=== PATIENT | male | born 1990 | race Caucasian/White ===

== ENCOUNTER 2016-11-16 18:31 | Emergency (ER) | payer BC ==
[2016-11-16 18:37] VITALS: BP 143/86; PULSE 101; RESP 16; TEMP 97.7; O2SAT 95
--- NOTE | 2016-11-16 18:50 | EDPHY ---
H & P Time Seen by Provider: 11/16/16 18:49 HPI/ROS: CHIEF COMPLAINT: Cough and fever HISTORY OF PRESENT ILLNESS: This 26-year-old man presents with nonproductive cough which is severe. 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 He started having symptoms approximately 48 hours ago with nonproductive cough, some wheezing, subjective fevers, myalgias. REVIEW OF SYSTEMS: Eye: no change in vision ENT: no sore throat Cardiac: no chest pain or syncope Pulmonary: No hemoptysis. Abdomen: no vomiting, diarrhea, abdominal pain Musculoskeletal: Myalgias but no specific neck or back pain. Skin: no rash Neuro: Mild headache Constitutional: Fevers and chills, no recent travel. : no urinary symptoms A comprehensive 10 point review of systems is otherwise negative aside from elements mentioned in the history of present illness. PAST MEDICAL HISTORY: Previous pneumonia Social history: Tobacco smoker, no IV drug abuse or foreign travel. General Appearance: Alert and conversant, cooperative. Eyes: No scleral icterus. ENT, Mouth: Normal mucous membranes. No facial swelling, normal tympanic membranes. Respiratory: Bilateral expiratory wheezing but speaks in full sentences, no focal lung sounds. Cardiovascular: Regular rate and rhythm. Gastrointestinal: Abdomen is soft and non tender. Neurological: Alert and oriented x3. Normally conversant. Face symmetric, normal movement and sensation in all extremities. Skin: Warm and dry, no rashes. Musculoskeletal: No peripheral edema and no joint swelling. No calf tenderness. Normal range of motion of the neck. Psychiatric: Not agitated. Emergency Department course/MDM: Patient presents with symptoms consistent with influenza. Temperature was a 100.8 degrees at home. Does not have presentation of meningitis or sepsis. He has bronchospasm here and empiric treatment with Tamiflu discussed and consented. Flu testing sent and resulted as negative, but we discussed false- positive and false negative possibilities, he would prefer empiric treatment. Albuterol MDI, Vicodin and Tessalon for cough, oral Tamiflu. No antibiotics. No focal lung sounds and normal oxygen saturation. Smoking Status: Current every day smoker Constitutional: Initial Vital Signs Temperature (C) 36.5 C 11/16/16 18:34 Heart Rate 101 H 11/16/16 18:34 Respiratory Rate 16 11/16/16 18:34 Blood Pressure 143/86 H 11/16/16 18:34 O2 Sat (%) 95 11/16/16 18:34 O2 Delivery Mode Room Air Allergies/Adverse Reactions: No Known Allergies Allergy (Unverified 11/16/16 18:33) Home Medications: Medication Instructions Recorded Benzonatate [Tessalon Pearles (RX)] 100 mg PO Q8 PRN #15 cap 11/16/16 Oseltamivir Phosphate [Tamiflu] 75 mg PO BID #0 cap 11/16/16 Medical Decision Making - Data Points Medications Given: Discontinued Medications Acetaminophen/Hydrocodone Bitart ([place] 5/325mg Prepack#6) 1 btl TAKEHOME EDNOW ONE Stop: 11/16/16 19:02 Last Admin: 11/16/16 19:12 Dose: 1 btl Albuterol Sulfate (Proventil Inh Prepack) 1 mdi TAKEHOME EDNOW ONE Stop: 11/16/16 19:02 Last Admin: 11/16/16 19:11 Dose: 1 mdi Oseltamivir Phosphate (Tamiflu) 75 mg PO EDNOW ONE Stop: 11/16/16 19:03 Last Admin: 11/16/16 19:12 Dose: 75 mg Departure - Departure Disposition: Home, Routine, Self-Care Clinical Impression: Bronchospasm, Viral syndrome, possible influenza Condition: Good Instructions: Albuterol (By breathing), Influenza (ED) Additional Instructions: Albuterol inhaler 2 puffs every 4 hours as needed for coughing. Vicodin 1 by mouth at bedtime as needed for cough suppression while you are sleeping. Referrals: NONE *PRIMARY CARE P,. [Primary Care Provider] - As per Instructions Kelly Smith MD [Medical Doctor] - As per Instructions Prescriptions: Oseltamivir Phosphate [Tamiflu] 75 mg PO BID #0 cap Benzonatate [Tessalon Pearles (RX)] 100 mg PO Q8 PRN #15 cap PRN Reason: Cough, Moderate
[2016-11-16] MEDS ORDERED: ALBUTEROL INH PREPACK MDI TAKEHOME ONE (19:01)
[2016-11-16] MEDS ORDERED: HYDROCOD/APAP 5/325 PREPACK#6 BTL TAKEHOME ONE (19:01)
[2016-11-16] MEDS ORDERED: OSELTAMIVIR PHOSPHATE 75 MG CAP PO ONE (19:02)
== END 2016-11-16 19:24 | disposition home or self-care (01) ==
DX: B34.9 Viral infection, unspecified (principal); J98.01 Acute bronchospasm; F17.200 Nicotine dependence, unspecified, uncomplicated

== ENCOUNTER 2016-11-20 14:08 | Emergency (ER) | payer BC ==
[2016-11-20 14:16] VITALS: RESP 16
[2016-11-20] MEDS ORDERED: predniSONE 20 MG TAB PO ONE (14:43)
[2016-11-20] MEDS ORDERED: IPRATROPIUM/ALBUTEROL 3 ML DEYVIAL IH ONE (14:43)
--- NOTE | 2016-11-20 14:57 | EDPHY ---
H & P Time Seen by Provider: 11/20/16 14:54 HPI/ROS: HPI: 26-year-old male presents to emergency department with chief concern ongoing cough, mild shortness of breath. Was evaluated in the ED 5 days ago and prescribed an inhaler for URI. Reports worsening cough. He denies fever, chills, chest pain, abdominal pain, nausea, vomiting, diarrhea, rash. Did not receive a flu shot this year. Has no primary care provider. Moved here recently from [place]. History of pneumonia x3. No history asthma. No flu shot this year. Current daily smoker. ROS:10 point review of systems is negative other than as stated in HPI Past Medical/Surgical History: RA D with URIs Smoking Status: Current every day smoker Physical Exam: Vital signs stable, reviewed by me General: Awake, alert, calm, cooperative. No acute distress. Head: Normalocephalic. Atraumatic. EENT: PERRLA. EOMI. No pallor or injection. Anicteric. No nystagmus. No injection. TMs intact bilaterally with normal landmarks. Minimal nasal congestion. Oropharynx with mild erythema, no exudates, or lesions. Tonsils 2+ bilaterally, no exudates. Neck: Supple, nontender. No lymphadenopathy. Full range of motion. No meningismus. Respiratory: Breathing unlabored. Breath sounds with scattered rhonchi and expiratory wheezes throughout CV: Chest nontender, atraumatic. Heart rate regular. No murmur, distal pulses 2+ bilaterally. Brisk cap refill all extremities. GI: Abdomen soft, nontender. Bowel sounds normoactive and positive x4 quadrants. Neuro: Alert. Oriented x 3. Speech clear. Skin: Skin warm, dry, intact. No rashes. Skin turgor normal. Extremities: Full range of motion in all 4 extremities. Strength 5+ all extremities. Constitutional: Initial Vital Signs Temperature (C) 36.4 C 11/20/16 14:10 Heart Rate 96 11/20/16 14:10 Respiratory Rate 16 11/20/16 14:10 Blood Pressure 131/89 H 11/20/16 14:10 O2 Sat (%) 97 11/20/16 14:10 O2 Delivery Mode Room Air Allergies/Adverse Reactions: No Known Allergies Allergy (Verified 11/20/16 14:11) Home Medications: Medication Instructions Recorded Benzonatate [Tessalon Briseydales (RX)] 100 mg PO Q8 PRN #15 cap 11/16/16 Oseltamivir Phosphate [Tamiflu] 75 mg PO BID #0 cap 11/16/16 Albuterol Sulfate [Proventil Hfa] 6.7 gm IH 11/20/16 HYDROcodone/HOMATROPINE HYCODA 5 - 10 ml PO HS PRN #60 ml 11/20/16 [Hycodan Syrup (*)] Hydrocodone/Acetaminophen [Vicodin 1 each PO 11/20/16 5-300 mg Tablet] predniSONE 20 mg PO DAILY #9 tablet 11/20/16 Medical Decision Making - Diagnostics Imaging: PA and Lateral Chest X-Ray 1423 hours History: Cough with shortness of breath. Tobacco use. Previous history of pneumonia. Findings: Heart size and pulmonary vasculature are normal. There is peribronchial cuffing seen in the perihilar region and prominence of perihilar interstitial markings. There are no peripheral infiltrates or effusions. Osseous structures are intact. Impression: Prominence of perihilar interstitial markings and peribronchial cuffing. Findings are nonspecific but can be seen with bronchitis, reactive airway disease, or viral process. Dictated By: Lawson Quintana MD ED Course/Re-evaluation: 26-year-old male presents to emergency department with chief concern shortness of breath with worsening cough. He has a history of a pneumonia x3. He has scattered rhonchi and wheezes in his lungs. Afebrile. Heart rate 96. Oxygen saturation 97% on room air. At chest x-ray ordered to rule out a pneumonia. He is given 1 DuoNeb, 60 mg prednisone. 1525: No evidence of pneumonia. Feels improved after DuoNeb. Last wheezing. Given 60 mg prednisone here. Will have him follow up with primary care and use his albuterol inhaler. Differential Diagnosis: Viral URI including bronchitis, reactive airway disease, pneumonia - Data Points Medications Given: Discontinued Medications Albuterol/Ipratropium (Duoneb) 3 ml IH EDNOW ONE Stop: 11/20/16 14:44 Last Admin: 11/20/16 15:00 Dose: 3 ml Prednisone (Prednisone) 60 mg PO EDNOW ONE Stop: 11/20/16 14:44 Last Admin: 11/20/16 15:00 Dose: 60 mg Departure - Departure Disposition: Home, Routine, Self-Care Clinical Impression: Acute bronchitis Qualifiers: Bronchitis organism: unspecified organism Qualifier Code: (J20.9) Acute bronchitis, unspecified Condition: Good Instructions: Acute Bronchitis (ED), How to Stop Smoking (ED) Additional Instructions: Plan: Use your albuterol inhaler 2 puffs every 4-6 hours for shortness of breath, wheezing. Prednisone as prescribed Hycodan cough syrup at bedtime as prescribed--Never drink or drive while taking this medication. This medication impairs decision making capacity so do not work or sign important documents while taking. This medication its constipating so drink plenty of fluids and consider an [id number] stool softener such as docusate sodium (Colace) while taking this medication. This medication has addictive properties. You should use the least amount for the shortest amount of time. [facility] ED and Urgent [facility] do not refill narcotic pain medication prescriptions. This is a hospital policy. You will need to follow up as indicated for recheck for further narcotic refills. Follow up with primary care by next week for recheck--When you call to schedule appointment, please let the office know you are an "ER follow up" appointment" Referrals: NONE *PRIMARY CARE P,. [Primary Care Provider] - As per Instructions Chery Chen, RN, [employer]BL[employer] [Certified Nurse Practioner] - As per Instructions Prescriptions: HYDROcodone/HOMATROPINE HYCODA [Hycodan Syrup (*)] 5 - 10 ml PO HS PRN #60 ml PRN Reason: severe cough preventing sleep predniSONE 20 mg PO DAILY #9 tablet
--- NOTE | 2016-11-20 15:10 | DX ---
PA and Lateral Chest X-Ray 1423 hours History: Cough with shortness of breath. Tobacco use. Previous history of pneumonia. Findings: Heart size and pulmonary vasculature are normal. There is peribronchial cuffing seen in t he perihilar region and prominence of perihilar interstitial markings. There are no peripheral infilt rates or effusions. Osseous structures are intact. Impression: Prominence of perihilar interstitial markings and peribronchial cuffing. Findings are non specific but can be seen with bronchitis, reactive airway disease, or viral process.
[2016-11-20 15:52] VITALS: BP 123/92; PULSE 101; TEMP 98.2; O2SAT 95
== END 2016-11-20 15:52 | disposition home or self-care (01) ==
DX: J20.9 Acute bronchitis, unspecified (principal); F17.200 Nicotine dependence, unspecified, uncomplicated